=== PATIENT | male | born 1995 | race Caucasian/White ===

== ENCOUNTER 2023-01-13 23:57 | Emergency (ER) | payer OTHER ==
[2023-01-14 00:06] VITALS: BP 134/84
== END 2023-01-14 05:10 | disposition home or self-care (01) ==
LOC: ER 01-14 00:33
DX: T40.711A Poisoning by cannabis, accidental (unintentional), initial encounter (principal); Z13.9 Encounter for screening, unspecified; Y92.9 Unspecified place or not applicable
CPT/HCPCS: 99283